=== PATIENT | male | born 1935 | race Caucasian/White ===

== ENCOUNTER 2017-01-10 15:25 | Inpatient (IN) | payer MEDICARE ==
[~2017-01-10] VITALS: Ht 185.4 cm; Wt 76.7 kg
[~2017-01-10 15:25] MED LIST: ALBUTEROL0.63 MG/3 NEB; ALDACTONE 25MG25 MG PO; ASPIRIN CHEWABL81 MG PO; ASPIRIN EC81 MG PO; ATROVENT INH S2.5 ML INH; ATROVENT INH S2.5 ML NEB; BUMETANIDE2 MG PO; BUMEX 1MG TABLET1 MG PO; CALCITRIOL0.25 MCG PO; COMBIVENT0.074 GM/I INH; COREG 12.5MG12.5 MG PO; COREG 25MG TAB25 MG PO; COUMADIN2 MG PO; COUMADIN3 MG PO; FEOSOL325 MG PO; FLOMAX 0.4 MG0.4 MG PO; HUMALOG 10100 UNITS/ SC; HUMULIN R100 UNIT/1 SC; HYDRALAZINE HCL25 MG PO; HYDRALAZINE HCL50 MG PO; IMDUR ER TAB 6060 MG PO; IMURAN50 MG PO; ISORDIL TAB 1010 MG PO; KEPPRA 500 MG500 MG PO; KEPPRA250 MG PO; LANTUS100 UNIT/1 SC; LANTUS100 UNIT/1 SQ; LIPITOR TAB 1010 MG PO; LORTAB 5-325 M1 EACH PO; METOLAZONE2.5 MG PO; NITROSTAT 0.40.4 MG SL; NORVASC 5 MG TAB5 MG PO; NORVASC10 MG PO; NOVOLOG 10100 UNITS1 SQ; PLETAL 100 MG100 MG PO; PROAIR HFA8.5 GM INH; PROBIOTIC1 EAC1 PO; PROBIOTIC1 EAC2 PO; ROCALTROL CA0.25 MCG PO; SODIUM BICARBO650 M1 PO; SODIUM BICARBO650 MG PO; VANCOCIN HCL250 MG PO; VENTOLIN/PROVE0.5 ML INH; VENTOLIN/PROVE0.5 ML NEB; VITAMIN D 11000 UNIT PO; ZAROXOLYN/DIUL2.5 MG PO; ZYRTEC10 M3 PO; ZYRTEC10 MG PO
[2017-01-10 16:04] LABS: HEMOGLOBIN 12.2 gm/dl (14.0-17.5); RED BLOOD COUNT 3.85 M/UL (4.20-5.50); WHITE BLOOD COUNT 15.6 K/UL (4.5-11.0)
[2017-01-10] MEDS ORDERED: COUMADIN2 MG PO (20:19)
[2017-01-10] MEDS ORDERED: COUMADIN3 MG PO (20:19)
[2017-01-11 05:54] LABS: HEMOGLOBIN 10.4 gm/dl (14.0-17.5)
[2017-01-11 06:03] LABS: RED BLOOD COUNT 3.36 M/UL (4.20-5.50); WHITE BLOOD COUNT 11.4 K/UL (4.5-11.0)
[2017-01-12 05:52] LABS: HEMOGLOBIN 10.1 gm/dl (14.0-17.5); RED BLOOD COUNT 3.32 M/UL (4.20-5.50); WHITE BLOOD COUNT 13.7 K/UL (4.5-11.0)
[2017-01-12] MEDS ORDERED: LEVAQUIN250 MG PO (15:56)
[2017-01-12] MEDS ORDERED: PREDNISONE10 MG PO (15:59)
[2017-06-09] MEDS ORDERED: VANCOMYCIN1 GM/2501 IV (12:09)
[2017-06-09] MEDS ORDERED: NEPRO CARB ST1000 ML PO (12:10)
[2017-06-09] MEDS ORDERED: GENTAMICIN SULF30 GM TP (12:13)
[2017-06-09] MEDS ORDERED: MEGACE 400400 MG/10 PO (12:24)
[2017-06-09] MEDS ORDERED: METOPROLOL TART25 MG PO (12:25)
[2017-06-09] MEDS ORDERED: NIFEREX 150 MG150 MG PO (12:25)
[2017-06-09] MEDS ORDERED: FLOMAX0.4 MG PO (12:28)
[2017-06-09] MEDS ORDERED: RANEXA500 MG PO (12:28)
[2017-06-21] MEDS ORDERED: CALCIUM ACETAT667 MG PO (03:22)
[2017-06-21] MEDS ORDERED: SEROQUEL25 MG PO (03:23)
== END 2017-01-12 16:56 | disposition home or self-care (01) | DRG 190 ==
LOC: ER1 15:25 → ZEROF 18:24 → M/S 20:09
PROVIDERS: Emergency Medicine; Internal Medicine Nephrology; ADMIT Hospitalist
DX: J44.1 Chronic obstructive pulmonary disease with (acute) exacerbation (principal); N18.6 End stage renal disease; I12.0 Hypertensive chronic kidney disease with stage 5 chronic kidney disease or end stage renal disease; D68.318 Other hemorrhagic disorder due to intrinsic circulating anticoagulants, antibodies, or inhibitors; E11.21 Type 2 diabetes mellitus with diabetic nephropathy; J44.0 Chronic obstructive pulmonary disease with (acute) lower respiratory infection; I25.10 Atherosclerotic heart disease of native coronary artery without angina pectoris; Z95.1 Presence of aortocoronary bypass graft; E78.5 Hyperlipidemia, unspecified; J20.9 Acute bronchitis, unspecified; Z88.0 Allergy status to penicillin; Z99.2 Dependence on renal dialysis; Z79.82 Long term (current) use of aspirin; Z79.899 Other long term (current) drug therapy; Z79.01 Long term (current) use of anticoagulants; Z79.4 Long term (current) use of insulin; I70.0 Atherosclerosis of aorta; D63.1 Anemia in chronic kidney disease; I25.5 Ischemic cardiomyopathy; R07.9 Chest pain, unspecified; E11.65 Type 2 diabetes mellitus with hyperglycemia
CPT/HCPCS: 36415; 36600; 71010; 71020; 80048; 80053; 80069; 80074; 81001; 82550; 82553; 82803; 82962; 83880; 84484; 85025; 85027; 85610; 86140; 87040; 93005; 94640; 94664; 99285; J2185; J2930; J7050

== ENCOUNTER 2017-03-14 16:03 | Inpatient (IN) | payer MEDICARE ==
[~2017-03-14] VITALS: Ht 185.4 cm; Wt 74.8 kg
[~2017-03-14 16:03] MED LIST changes: +LEVAQUIN250 MG PO; +PREDNISONE10 MG PO
[2017-03-14 20:01] LABS: HEMOGLOBIN 10.5 gm/dl (14.0-17.5); RED BLOOD COUNT 3.41 M/UL (4.20-5.50); WHITE BLOOD COUNT 12.5 K/UL (4.5-11.0)
[2017-03-15] MEDS ORDERED: KLONOPIN TAB 00.5 MG PO (20:39)
[2017-03-15] MEDS ORDERED: COZAAR50 MG PO (20:41)
[2017-03-16 04:43] LABS: HEMOGLOBIN 9.7 gm/dl (14.0-17.5); RED BLOOD COUNT 3.11 M/UL (4.20-5.50); WHITE BLOOD COUNT 15.4 K/UL (4.5-11.0)
[2017-03-17 05:35] LABS: HEMOGLOBIN 9.6 gm/dl (14.0-17.5); RED BLOOD COUNT 3.14 M/UL (4.20-5.50); WHITE BLOOD COUNT 8.5 K/UL (4.5-11.0)
[2017-03-19 06:17] LABS: HEMOGLOBIN 8.7 gm/dl (14.0-17.5); RED BLOOD COUNT 2.86 M/UL (4.20-5.50); WHITE BLOOD COUNT 6.8 K/UL (4.5-11.0)
[2017-03-19 21:50] LABS: ACINETOBACTER BAUMANNII Not Detected (Negative); CANDIDA ALBICANS Not Detected (Negative); CANDIDA KRUSEI Not Detected (Negative); CANDIDA TROPICALIS Not Detected (Negative); ENTEROCOCCUS Not Detected (Negative); ESCHERICHIA COLI Not Detected (Negative); HAEMOPHILUS INFLUENZAE Not Detected (Negative); KLEBSIELLA OXYTOCA Not Detected (Negative); KLEBSIELLA PNEUMONIAE DETECTED (Negative); KPC-CARBAPENEM-RESISTANCE GENE Not Detected (Negative); PROTEUS Not Detected (Negative); PSEUDOMONAS AERUGINOSA Not Detected (Negative); SERRATIA MARCESANS Not Detected (Negative); STAPHYLOCOCCUS Not Detected (Negative); STAPHYLOCOCCUS AUREUS Not Detected (Negative); STREP AGALACTIAE (GROUP B) Not Detected (Negative); STREP PYOGENES (GROUP A) Not Detected (Negative); STREPTOCOCCUS Not Detected (Negative); mecA (METHICILLIN RESIST GENE Not Detected (Negative); vanA/B (VANCOMYCIN RESIST GENE Not Detected (Negative)
[2017-03-21 05:38] LABS: HEMOGLOBIN 9.2 gm/dl (14.0-17.5); RED BLOOD COUNT 3.02 M/UL (4.20-5.50)
[2017-03-23 06:55] LABS: HEMOGLOBIN 8.4 gm/dl (14.0-17.5); RED BLOOD COUNT 2.8 M/UL (4.20-5.50); WHITE BLOOD COUNT 7.7 K/UL (4.5-11.0)
[2017-03-24 06:10] LABS: HEMOGLOBIN 8.8 gm/dl (14.0-17.5); RED BLOOD COUNT 2.89 M/UL (4.20-5.50)
[2017-03-25] MEDS ORDERED: FORTAZ2 GM INJ (17:30)
[2017-03-25] MEDS ORDERED: LEVAQUIN750 MG PO (17:30)
[2017-03-25] MEDS ORDERED: TYLENOL 325MG325 MG PO (17:31)
[2017-03-25] MEDS ORDERED: PEPCID20 MG PO (17:32)
[2017-03-25] MEDS ORDERED: VITAMIN B-121000 MC3 PO (17:33)
[2017-06-09] MEDS ORDERED: VANCOMYCIN1 GM/2501 IV (12:09)
[2017-06-09] MEDS ORDERED: NEPRO CARB ST1000 ML PO (12:10)
[2017-06-09] MEDS ORDERED: GENTAMICIN SULF30 GM TP (12:13)
[2017-06-09] MEDS ORDERED: MEGACE 400400 MG/10 PO (12:24)
[2017-06-09] MEDS ORDERED: METOPROLOL TART25 MG PO (12:25)
[2017-06-09] MEDS ORDERED: NIFEREX 150 MG150 MG PO (12:25)
[2017-06-09] MEDS ORDERED: FLOMAX0.4 MG PO (12:28)
[2017-06-09] MEDS ORDERED: RANEXA500 MG PO (12:28)
[2017-06-21] MEDS ORDERED: CALCIUM ACETAT667 MG PO (03:22)
[2017-06-21] MEDS ORDERED: SEROQUEL25 MG PO (03:23)
== END 2017-03-25 17:51 | disposition home or self-care (01) | DRG 314 ==
LOC: ER1 16:03 → ZEROF 03-15 02:07 → M/S 03-15 02:07
PROVIDERS: Family Medicine; Internal Medicine; Internal Medicine Nephrology; ADMIT Family Medicine
PROC: 5A1D00Z (ICD-10-PCS; principal; 2017-03-17)
PROC: 05PY33Z Removal of Infusion Device from Upper Vein, Percutaneous Approach (ICD-10-PCS; 2017-03-21)
PROC: B544ZZA Ultrasonography of Left Jugular Veins, Guidance (ICD-10-PCS; 2017-03-24)
PROC: 05HN33Z Insertion of Infusion Device into Left Internal Jugular Vein, Percutaneous Approach (ICD-10-PCS; 2017-03-24)
DX: T82.7XXA Infection and inflammatory reaction due to other cardiac and vascular devices, implants and grafts, initial encounter (principal); N18.6 End stage renal disease; A41.89 Other specified sepsis; J96.11 Chronic respiratory failure with hypoxia; I13.2 Hypertensive heart and chronic kidney disease with heart failure and with stage 5 chronic kidney disease, or end stage renal disease; I50.22 Chronic systolic (congestive) heart failure; E87.2 Acidosis; R91.1 Solitary pulmonary nodule; B96.1 Klebsiella pneumoniae [K. pneumoniae] as the cause of diseases classified elsewhere; R41.82 Altered mental status, unspecified; M79.674 Pain in right toe(s); Z99.2 Dependence on renal dialysis; J44.9 Chronic obstructive pulmonary disease, unspecified; I25.10 Atherosclerotic heart disease of native coronary artery without angina pectoris; I25.5 Ischemic cardiomyopathy; I48.2 Chronic atrial fibrillation; I35.0 Nonrheumatic aortic (valve) stenosis; E53.8 Deficiency of other specified B group vitamins; R07.9 Chest pain, unspecified; E87.5 Hyperkalemia; I45.10 Unspecified right bundle-branch block; D64.9 Anemia, unspecified; E78.5 Hyperlipidemia, unspecified; G40.909 Epilepsy, unspecified, not intractable, without status epilepticus; E11.21 Type 2 diabetes mellitus with diabetic nephropathy; E11.22 Type 2 diabetes mellitus with diabetic chronic kidney disease; Z86.19 Personal history of other infectious and parasitic diseases; Z87.891 Personal history of nicotine dependence; Z88.0 Allergy status to penicillin; Z79.82 Long term (current) use of aspirin; Z79.4 Long term (current) use of insulin; Z79.01 Long term (current) use of anticoagulants; Z79.891 Long term (current) use of opiate analgesic; Z79.51 Long term (current) use of inhaled steroids; Z79.899 Other long term (current) drug therapy
CPT/HCPCS: ECHO; 36415; 70450; 71010; 71020; 77001; 80048; 80053; 80202; 81001; 82550; 82553; 82607; 82962; 83540; 83550; 83605; 83735; 83874; 84100; 84484; 84550; 85025; 85027; 85610; 85730; 86140; 87040; 87077; 87086; 87150; 87186; 90937; 93005; 93306; 94640; 99285; C1769; C1788; G0378; J0713; J0885; J1644; J1956; J2250; J3010; J7030; J7050; J7070; J7120; P9047; Q4081